=== PATIENT | male | born 1950 | race Caucasian/White ===

== ENCOUNTER 2022-04-10 11:16 | Day surgery (SDC) | payer BC, MEDICARE ==
[~2022-04-10 11:16] MED LIST: LACTATED RINGERS 1,000 ML IV SCH; LIDOCAINE 1% (10MG/ML) FOR IV START INTRADERMA PRN
[2022-04-10 12:25] VITALS: TEMP 97.3
[2022-04-10] MEDS ORDERED: PROPOFOL 10 MG/ML 20 ML VIAL IV ONE (13:52)
--- NOTE | 2022-04-10 14:07 | P.PCN ---
Date of Procedure: 04/10/22 Procedure(s) Performed: BRIEF HISTORY: Patient is a in 21-year-old pleasant White male scheduled for an elective colonoscopy as a part of evaluation of screening for colon cancer/positive cologuard PROCEDURE PERFORMED: Colonoscopy. PREOPERATIVE DIAGNOSIS: Screening for colon cancer/positive cologuard:. IV sedation per Anesthesia. PROCEDURE: After informed consent was obtained, the patient, was brought into the endoscopy unit. IV sedation was administered by Anesthesia under continuous monitoring. Digital rectal examination was normal. Initially the Olympus CF-160 flexible video colonoscope was then inserted in the rectum, gradually advanced into the cecum without any difficulty. Careful examination was performed as the scope was gradually being withdrawn. Ileocecal valve and the appendiceal orifice were visualized and appeared normal. Prep was excellent. Mucosa of the cecum, ascending colon, transverse colon, descending colon, sigmoid colon, and rectum appeared normal. Retroflexion was performed in the rectum and small internal were seen. The patient tolerated the procedure well. IMPRESSION: Normal-appearing colon from rectum to cecum no evidence of colorectal neoplasia Small internal hemorrhoids. RECOMMENDATIONS: Findings of this examination were discussed with the patient as well as his family. He was advised to have a repeat screening colonoscopy in 10 years..
[2022-04-10 14:14] VITALS: RESP 16
[2022-04-10 14:33] VITALS: BP 135/82; PULSE 66
== END 2022-04-10 14:50 | disposition home or self-care (01) ==
LOC: ORWHC2ENDO 11:16
PROVIDERS: ATTEND Internal Medicine Gastroenterology
DX: Z12.11 Encounter for screening for malignant neoplasm of colon (principal); K64.8 Other hemorrhoids; Z86.718 Personal history of other venous thrombosis and embolism; Z79.01 Long term (current) use of anticoagulants; Z79.899 Other long term (current) drug therapy
CPT/HCPCS: G0121; J2704; 45378

== ENCOUNTER → 2023-12-12 | Outpatient (CLI) | payer MEDICARE ==
--- NOTE | 2023-12-12 10:30 | US ---
EXAMINATION TYPE: US venous doppler duplex LE LT DATE OF EXAM: 12/12/2023 10:21 AM COMPARISON: 02/04/2015 CLINICAL INDICATION: Male, 73 years old with history of M79.662 PAIN IN LEFT LOWER LEG R22.42 LOCALIZ ED SW; edema left leg for 4 days. Patient on blood thinner, history of DVT SIDE PERFORMED: left TECHNIQUE: The lower extremity deep venous system is examined utilizing real time linear array sonog fidelia with graded compression, doppler sonography and color-flow sonography. VESSELS IMAGED: Common Femoral Vein Deep Femoral Vein Greater Saphenous Vein * Femoral Vein Popliteal Vein Small Saphenous Vein * Proximal Calf Veins (* superficial vessels) Left Leg: positive for DVT left popliteal vein distal. There are filling defects noted within the lower popliteal vein. This vessel is partially compressibl e and relatively smaller in caliber. While no color is identified within this vessel, spectral analys is shows some flow. Some surrounding collateral vessels are also noted. Findings suggest more chronic DVT. IMPRESSION: Findings as above which suggest more chronic DVT involving the lower popliteal vein. No a cute, occlusive DVT identified imaged from the groin to the upper calf.
== END | disposition home or self-care (01) ==
LOC: RADUSWWP 09:57
PROVIDERS: ATTEND Family Medicine
DX: I82.402 Acute embolism and thrombosis of unspecified deep veins of left lower extremity (principal); R22.42 Localized swelling, mass and lump, left lower limb

== ENCOUNTER 2023-12-22 07:46 | Day surgery (SDC) | payer MEDICARE ==
[2023-12-19 12:25] VITALS: BMI 29.8
[2023-12-22] MEDS ORDERED: LIDOCAINE 1% (10MG/ML) FOR IV START INTRADERMA PRN (07:57)
[2023-12-22] MEDS ORDERED: droPERidol 5 MG/2 ML VIAL IVP ONE (07:57)
[2023-12-22] MEDS ORDERED: HYDROmorphone 0.5 MG/0.5 ML SYRINGE IVP PRN (07:57)
[2023-12-22] MEDS: IV FLUID CONTINUATION 1,000 ML IV ONE ×2 (08:25→11:22)
[2023-12-22] MEDS: ONDANSETRON 4 MG/2 ML VIAL IVP ONE (08:30)
[2023-12-22] MEDS: DEXAMETHASONE SOD PHOSPHATE 4 MG/ML 1 ML VIAL IV ONE (08:30)
[2023-12-22] MEDS: LACTATED RINGERS 1,000 ML IV SCH (08:30)
[2023-12-22] MEDS: ACETAMINOPHEN TAB 500 MG TAB PO PRN (08:31)
[2023-12-22 08:45] LABS: Basophils # (A) 0.1 k/uL (0-0.2); Basophils % (A) 1 %; Eosinophils # (A) 0.3 k/uL (0-0.7); Eosinophils % (A) 5 %; HCT 44.1 % (39.0-53.0); Lymphocytes # (A) 1.8 k/uL (1.0-4.8); Lymphocytes % (A) 31 %; MCH 32.5 pg (25.0-35.0); MCHC 31.8 g/dL (31.0-37.0); MCV 102.1 fL (80.0-100.0); Macrocytosis Slight; Mean Platelet Volume 8.1; Monocytes # (A) 0.5 k/uL (0-1.0); Monocytes % (A) 8 %; Neutrophils # (A) 3.1 k/uL (1.3-7.7); Neutrophils % (A) 52 %; Platelet Count 250 k/uL (150-450); RBC 4.32 m/uL (4.30-5.90)
[2023-12-22 08:49] LABS: ALT 30 U/L (4-49); AST 37 U/L (17-59); African American GFR (CKD) >90 (>60 ml/min/1.73 sqM); Alkaline Phosphatase 67 U/L (38-126); Anion Gap 8 mmol/L; Blood Urea Nitrogen 29 mg/dL (9-20); Calcium 9.1 mg/dL (8.4-10.2); Carbon Dioxide 19 mmol/L (22-30); Chloride 114 mmol/L (98-107); Glucose 102 mg/dL (74-99); Non-African American GFR(CKD) 88 (>60 ml/min/1.73 sqM); Potassium 4.5 mmol/L (3.5-5.1); Sodium 141 mmol/L (137-145); Total Bilirubin 0.9 mg/dL (0.2-1.3); Total Protein 7.4 g/dL (6.3-8.2)
[2023-12-22] MEDS: HEPARIN SODIUM,PORCINE 5,000 UNIT/ML 1 ML VIAL SQ PRN (09:16)
[2023-12-22] MEDS ORDERED: ROCURONIUM 10 MG/ML (5 ML VIAL) IV ONE (09:54)
[2023-12-22] MEDS ORDERED: fentaNYL (PF) 50 MCG/ML 2 ML AMP ONE (09:54)
[2023-12-22] MEDS ORDERED: MIDAZOLAM 2 MG/2 ML VIAL ONE (09:54)
[2023-12-22] MEDS ORDERED: PHENYLEPHRINE 10 MG/ML VIAL ONE (09:54)
[2023-12-22] MEDS ORDERED: HYDROmorphone (PF) 1 MG/ML ONE (09:54)
[2023-12-22] MEDS ORDERED: NEOSTIGMINE 1 MG/ML 10 ML VIAL ONE (09:54)
[2023-12-22] MEDS ORDERED: KETOROLAC 15 MG/ML 1 ML VIAL ONE (09:54)
[2023-12-22] MEDS ORDERED: GLYCOPYRROLATE 0.2 MG/ML 2 ML VIAL ONE (09:54)
[2023-12-22] MEDS ORDERED: LIDOCAINE 1% INJ 10MG/ML (20 ML MDV) ONE (09:54)
[2023-12-22] MEDS ORDERED: SUCCINYLCHOLINE CHLORIDE 200 MG/10 ML VIAL IV ONE (09:54)
[2023-12-22] MEDS ORDERED: PROPOFOL 10 MG/ML 20 ML VIAL IV ONE (09:54)
[2023-12-22] MEDS: LIDOCAINE 1%-EPI 1:100,000 20 ML VIAL SQ ONE (10:15)
--- NOTE | 2023-12-22 10:42 | P.OP ---
Date of Procedure: 12/22/23 Preoperative Diagnosis: Cholecystitis Postoperative Diagnosis: Cholecystitis Procedure(s) Performed: Laparoscopic cholecystectomy Anesthesia: JULIA Surgeon: Cedric Deleon Estimated Blood Loss (ml): 5 Pathology: other (Gallbladder) Condition: stable Disposition: PACU Description of Procedure: The patient was placed on the operating table. The patient received a general endotracheal tube anesthesia. The patients abdomen was prepped and draped in the usual sterile fashion. Through an infraumbilical stab incision, the fascia of the anterior abdominal wall was grasped with a pair of Kochers and then the Veress needle was placed in the peritoneal cavity. Position of the Veress needle was confirmed with positive drop test. The abdomen was then insufflated. After adequate insufflation, the 10 mm trocar was placed in the peritoneal cavity. Following this the laparoscope was placed in the peritoneal cavity. The patient was placed in the head-up, right side up position and then a 5 mm trocar was placed in the right lateral and right subcostal position under direct visualization. A 8 mm trocar was placed in the epigastric position. The gallbladder was grasped in the fundus and infundibulum. Traction on the gallbladder was placed in the lateral and the cephalad positions. The triangle of Calot was visualized.. The cystic duct was bluntly dissected until the union of the cystic duct and common bile duct was seen. A critical view of safety was achieved. The cystic duct was then divided and sealed with the Harmonic scissors. A PDS Endoloop was then placed throughout the cystic duct stump. The cystic artery divided and sealed with the Harmonic scissors. The gallbladder was then removed from the liver bed using Harmonic scissors. The gallbladder was then extracted through the epigastric port site. Operative field was checked for any bleeding spots and Harmonic scissors was used to coagulate the liver bed. The abdomen was irrigated. The trocars were removed. The skin was closed using interrupted 3-0 Vicryl suture. Dermabond dressing were applied. The patient tolerated the procedure well.
[2023-12-22 11:01] VITALS: TEMP 97.2
[2023-12-22 13:38] VITALS: BP 128/72; PULSE 68; RESP 16
[2023-12-22] MEDS: LACTATED RINGERS 1,000 ML IV ONE (13:39)
== END 2023-12-22 14:48 | disposition home or self-care (01) ==
LOC: OR 07:46
PROVIDERS: ATTEND Surgery
DX: C23 Malignant neoplasm of gallbladder (principal); K81.1 Chronic cholecystitis; I10 Essential (primary) hypertension; E78.5 Hyperlipidemia, unspecified; E07.9 Disorder of thyroid, unspecified; G40.909 Epilepsy, unspecified, not intractable, without status epilepticus; F10.90 Alcohol use, unspecified, uncomplicated; Z86.718 Personal history of other venous thrombosis and embolism; Z79.01 Long term (current) use of anticoagulants; Z79.899 Other long term (current) drug therapy
CPT/HCPCS: 47562; 88304; 80053; 85025; J2250; J0330; J1644; J1100; J2710; J0690; J2405; J2001; J3010; J1170; J1885; J2704; J2371; J1596

== ENCOUNTER → 2024-07-08 | Outpatient (CLI) | payer MEDICARE ==
[2024-07-08 14:06] LABS: African American GFR (CKD) 85 (>60 ml/min/1.73 sqM); Blood Urea Nitrogen 19 mg/dL (9-20); Non-African American GFR(CKD) 74 (>60 ml/min/1.73 sqM)
--- NOTE | 2024-07-08 15:27 | CT ---
EXAMINATION TYPE: CT ChestAbdPelvis w con DATE OF EXAM: 07/08/2024 COMPARISON: None HISTORY: gallbladder ca CT DLP: 907 mGycm Automated exposure control for dose reduction was used. CONTRAST: CT scan of the chest, abdomen and pelvis is performed with Oral Contrast and with IV Contrast, patien t injected with 100ml mL of Isovue 300. FINDINGS: CT chest: There is no suspicious lung mass or nodule. There is no abnormal airspace/consolidative density or abnormal interstitial density. There is no pleural effusion, pleural thickening or pneumothorax. The great vessels and chest are normal there is no mediastinal, hilar or axillary adenopathy. No focal osseous lesions are seen. CT abdomen and pelvis: There is surgical absence of the gallbladder.. There is no biliary ductal dilatation. There is no focal mass or organomegaly involving the liver, pancreas, spleen or adrenal glands.. There is surgical absence of the right kidney. There is no left renal mass or hydronephrosis. . There is no retroperitoneal adenopathy or hemorrhage in the caliber of the abdominal aorta is aaron l. The bowel loops are normal in caliber and there is no dilatation or obstruction. No inflammatory restrepo ges identified in the bowel wall and mesentery. There is no free intracranial air or fluid. There is no pelvic mass or adenopathy. There is no free fluid within the pelvis. No focal osseous lesions are seen. There is a 4.4 centimeter fat-containing periumbilical hernia IMPRESSION: 1. No evidence of recurrent or metastatic disease within the chest, abdomen or pelvis. 2. Surgical absence of the gallbladder and right kidney. 3. 4.4 cm fat-containing periumbilical hernia. [facility], , 07/08/2024 3:24 PM
== END | disposition home or self-care (01) ==
LOC: RADCTMAIN 13:02
PROVIDERS: ATTEND Internal Medicine Hematology & Oncology
DX: E78.5 Hyperlipidemia, unspecified (principal); C23 Malignant neoplasm of gallbladder; D41.10 Neoplasm of uncertain behavior of unspecified renal pelvis; R19.7 Diarrhea, unspecified; K42.9 Umbilical hernia without obstruction or gangrene; Z90.49 Acquired absence of other specified parts of digestive tract
CPT/HCPCS: 82565; 84520; 71260; 74177; 36415; Q9967

== ENCOUNTER → 2024-09-21 | Outpatient (CLI) | payer MEDICARE ==
[2024-09-21 15:00] LABS: Basophils # (A) 0.18 X 10*3/uL (0.00-0.10); Basophils % (A) 1.9 %; Eosinophils # (A) 0.67 X 10*3/uL (0.04-0.35); HCT 40.3 % (39.6-50.0); MCH 33.8 pg (27.0-32.0); MCHC 32.3 g/dL (32.0-37.0); MCV 104.7 FL (80.0-97.0); Mean Platelet Volume 10.8 FL (9.5-12.2); Monocytes # (A) 1.04 X 10*3/uL (0.20-1.00); Monocytes % (A) 10.9 %; NRBC Per 100 WBC 0 X 10*3/uL (0.00-0.01); Neutrophils # (A) 5.63 X 10*3/uL (1.80-7.70); Platelet Count 303 X 10*3/uL (140-440); RBC 3.85 X 10*6/uL (4.40-5.60); RDW 13.5 % (11.5-14.5); WBC 9.54 X 10*3/uL (4.50-10.00)
== END | disposition home or self-care (01) ==
LOC: LABWHC1 08:48
PROVIDERS: ATTEND Surgery
DX: Z01.818 Encounter for other preprocedural examination (principal); I10 Essential (primary) hypertension
CPT/HCPCS: 36415; 85025; 86850; 86900; 86901; 93005

== ENCOUNTER 2024-09-28 05:55 | Day surgery (SDC) | payer MEDICARE ==
[~2024-09-28 05:55] MED LIST changes: -LACTATED RINGERS 1,000 ML IV SCH
[2024-09-28] MEDS: IV FLUID CONTINUATION 1,000 ML IV ONE (06:46)
[2024-09-28] MEDS ORDERED: fentaNYL (PF) 50 MCG/ML 2 ML AMP IV PRN (07:00)
[2024-09-28] MEDS ORDERED: HYDROmorphone 0.5 MG/0.5 ML SYRINGE IVP PRN (07:00)
[2024-09-28] MEDS: LACTATED RINGERS 1,000 ML IV SCH (07:07)
[2024-09-28] MEDS: ACETAMINOPHEN TAB 500 MG TAB PO PRN (07:07)
[2024-09-28] MEDS: ONDANSETRON 4 MG/2 ML VIAL IVP ONE (07:08)
[2024-09-28] MEDS: DEXAMETHASONE SOD PHOSPHATE 4 MG/ML 1 ML VIAL IV ONE (07:08)
[2024-09-28] MEDS: MIDAZOLAM 2 MG/2 ML VIAL IV ONE (07:12)
[2024-09-28] MEDS: HEPARIN SODIUM,PORCINE 5,000 UNIT/ML 1 ML VIAL SQ PRN (07:27)
--- NOTE | 2024-09-28 07:29 | P.ANPRN ---
Procedure Note - Anesthesia - Nerve Block Performed Bilateral Erector Spinae Single Time Out Performed: Yes Date of Procedure: 09/28/24 Procedure Start Time: 07:11 Procedure Stop Time: 07:16 Location of Patient: PreOp Indication: Acute Post-Operative Pain, Analgesia, Requested by Surgeon Sedation Type: Sedate with meaningful contact maintained Preparation: Sterile Prep Position: Prone Catheter: None Needle Types: Pajunk Needle Gauge: 21 Ultrasound used to visualize needle placement: Yes Ultrasound used to observe medication spread: Yes Injectate: 0.5% Ropivacaine (see comment for volume) ([id number], Needle level T10--- Each side.) Blood Aspirated: No Pain Paresthesia on Injection Noted: No Resistance on Injection: Normal Image Stored and Saved: Yes Events: Uneventful and Well Tolerated
[2024-09-28] MEDS ORDERED: ePHEDrine 50 MG/ML 1 ML VIAL ONE (07:30)
[2024-09-28] MEDS ORDERED: PROPOFOL 10 MG/ML 20 ML VIAL IV ONE (07:30)
[2024-09-28] MEDS ORDERED: GLYCOPYRROLATE 0.2 MG/ML 2 ML VIAL ONE (07:30)
[2024-09-28] MEDS ORDERED: DEXAMETHASONE SOD PHOSPHATE 4 MG/ML 1 ML VIAL ONE (07:30)
[2024-09-28] MEDS ORDERED: SUCCINYLCHOLINE CHLORIDE 200 MG/10 ML VIAL IV ONE (07:30)
[2024-09-28] MEDS ORDERED: ROPIVACAINE 5 MG/ML 30 ML VIAL ONE (07:30)
[2024-09-28] MEDS ORDERED: WATER FOR INJECTION, STERILE 10 ML VIAL IV ONE (07:30)
[2024-09-28] MEDS ORDERED: NEOSTIGMINE 1 MG/ML 10 ML VIAL ONE (07:30)
[2024-09-28] MEDS ORDERED: ROCURONIUM 10 MG/ML (5 ML VIAL) IV ONE (07:30)
[2024-09-28] MEDS ORDERED: fentaNYL (PF) 50 MCG/ML 2 ML AMP ONE (07:30)
[2024-09-28] MEDS ORDERED: SODIUM CHLORIDE 0.9% (PF) 10 ML VIAL ONE (07:30)
[2024-09-28] MEDS ORDERED: LIDOCAINE 1% INJ 10MG/ML (20 ML MDV) ONE (07:30)
[2024-09-28] MEDS ORDERED: KETOROLAC 15 MG/ML 1 ML VIAL ONE (07:30)
[2024-09-28] MEDS ORDERED: KETAMINE HCL IN 0.9 % NACL 50 MG/5 ML SYRINGE ONE (07:30)
[2024-09-28] MEDS: ceFAZolin 2 GM in DEXTROSE 5% IN WATER 50 ML IVPB PRN (07:33)
--- NOTE | 2024-09-28 07:35 | P.GSHP ---
History of Present Illness H&P Date: 09/28/24 Chief Complaint: Umbilical hernia This is a 74-year-old male whose developed an umbilical hernia. Patient presents today for laparoscopic robotic assisted repair. 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 possibly - Saw Dr. Martin ekg, echo 24 hr. monitor, carotids all WNL - Pt. to have sleep study in future d/t bradycardia at night per holter monitor History of Any Multi-Drug Resistant Organisms: None Reported Past Surgical History: Cholecystectomy Additional Past Surgical History / Comment(s): VEIN STRIPPING TO RIGHT LEG R/T- DVT 15 yrs ago, liver/lymph node biopsy following cholecytectomy - neg Past Anesthesia/Blood Transfusion Reactions: No Reported Reaction Additional Past Anesthesia/Blood Transfusion Reaction / Comment(s): no hx blood transfusion Smoking Status: Never smoker - Past Family History Mother Additional Family Medical History / Comment(s): blood clots-unsure location Medications and Allergies Home Medications Medication Instructions Recorded Confirmed Type Aspirin EC [Ecotrin Low Dose] 81 mg PO DAILY 04/10/22 09/28/24 History Ergocalciferol [Vitamin D2 (1250 1 cap PO WEEKLY 04/10/22 09/28/24 History Mcg = 91356 Iu)] Ascorbic Acid [Vitamin C] 1,000 mg PO DAILY 12/19/23 09/28/24 History Atorvastatin Calcium 10 mg PO DAILY 12/19/23 09/28/24 History Fish Oil/Dha/Epa [Fish Oil 1,200 1 each PO DAILY 12/19/23 09/28/24 History mg Fish Oil] Losartan Potassium [Cozaar] 100 mg PO QAM 12/19/23 09/28/24 History Magnesium 200 mg PO Q7D 12/19/23 09/28/24 History Multivitamins, Thera [Multivitamin 1 tab PO DAILY 12/19/23 09/28/24 History (formulary)] Rivaroxaban [Xarelto] 20 mg PO DAILY 12/19/23 09/28/24 History Acetaminophen Tab [Tylenol] 650 mg PO Q6H #30 tab 12/22/23 09/28/24 Rx L.acidoph,Paracasei, B.lactis 1 tab PO DAILY 09/23/24 09/28/24 History [Probiotic] Allergies Allergy/AdvReac Type Severity Reaction Status Date / Time No Known Allergies Allergy Verified 09/23/24 14:42 Surgical - Exam Vital Signs Temp Pulse Resp BP Pulse Ox 96.5 F L 64 16 128/74 95 09/28/24 06:45 09/28/24 06:45 09/28/24 06:45 09/28/24 06:45 09/28/24 06:45 - General well developed, well nourished, no distress - Eyes PERRL - ENT normal pinna - Neck no masses - Respiratory normal expansion - Cardiovascular Rhythm: regular - Abdomen Abdomen: soft, non tender Hernia: umbilical Assessment and Plan Assessment: Umbilical hernia. Will perform laparoscopic robotic assisted repair.
[2024-09-28] MEDS: LIDOCAINE 1%-EPI 1:100,000 20 ML VIAL SQ ONE (08:00)
[2024-09-28] MEDS: LACTATED RINGERS 1,000 ML IV ONE (08:27)
--- NOTE | 2024-09-28 08:45 | P.OP ---
Date of Procedure: 09/28/24 Preoperative Diagnosis: Incarcerated local hernia Postoperative Diagnosis: Incarcerated local hernia Right inguinal hernia Procedure(s) Performed: Laparoscopic robotic repair of incarcerated local hernia Transversus abdominis plane block Anesthesia: JULIA Surgeon: Cedric Deleon Estimated Blood Loss (ml): 5 Pathology: none sent Condition: stable Disposition: PACU Operative Findings: 5 cm incarcerated local hernia with incarcerated omentum Description of Procedure: The patient was placed on the operating table in the supine position. He received general anesthesia. His abdomen was prepped and draped usual fashion. Using a 5 mm optical trocar under direct visualization the peritoneal cavity was entered in the left upper quadrant. The abdomen was then insufflated. The laparoscope was placed back into the perineal cavity. Next a 8 mm robotic trocar was placed in the left lower quadrant and a 12 mm robotic trocar was placed in the left lateral position. The original 5 mm trocar was exchanged for a 8 mm robotic trocar. The patient's placed in the left side up position. And the patient was un docked to the robot A four-quadrant transversus abdominis plane block was performed with 1% local Xylocaine. The umbilical hernia was visualized. Using hook cautery the peritoneum over the umbilical hernia was excised. The incarcerated omentum was dissected free. The fascial opening was repaired using 0V LOC suture. Next a piece of 11 cm round ventral light ST mesh was placed into the. Cavity and secured with 2 OV lock suture. The patient was undocked the robot. The needles were retrieved. The fascia of the 12 mm trocar site was closed with 0 Ethibond suture. Skin was closed interrupted 3-0 Monocryl suture. Dermabond dressings was applied. Patient top procedure well and was sent to recovery room stable condition.
[2024-09-28 08:49] VITALS: TEMP 97
[2024-09-28 10:35] VITALS: PULSE 53
[2024-09-28 11:07] VITALS: BP 123/72; RESP 18
== END 2024-09-28 11:35 | disposition home or self-care (01) ==
LOC: OR 05:55
PROVIDERS: ATTEND Surgery
DX: K42.0 Umbilical hernia with obstruction, without gangrene (principal); K40.90 Unilateral inguinal hernia, without obstruction or gangrene, not specified as recurrent; G89.18 Other acute postprocedural pain; I10 Essential (primary) hypertension; E78.5 Hyperlipidemia, unspecified; G25.81 Restless legs syndrome; R00.1 Bradycardia, unspecified; Z79.82 Long term (current) use of aspirin; Z79.01 Long term (current) use of anticoagulants; Z79.899 Other long term (current) drug therapy; Z86.718 Personal history of other venous thrombosis and embolism; Z85.09 Personal history of malignant neoplasm of other digestive organs; Z90.49 Acquired absence of other specified parts of digestive tract
CPT/HCPCS: 49594; S2900; 64468

== ENCOUNTER → 2024-12-09 | Outpatient (CLI) | payer MEDICARE ==
[2024-12-09 15:27] VITALS: BP 130/82; PULSE 60; RESP 16; TEMP 97.5
--- NOTE | 2024-12-09 15:49 | P.SLEEP ---
History of Present Illness DATE: 12/09/2024 CONSULTATION/NEW PATIENT EVALUATION HISTORY OF PRESENT ILLNESS/SLEEP-WAKE EVALUATION: 74-year-old gentleman had be en evaluated in the sleep center for possible obstructive sleep apnea hypopnea syndrome. SLEEP SCHEDULE: Usually sleep schedule from 10 PM to 6 AM. FALLING ASLEEP: No problems with falling asleep. DURING SLEEP: Patient snores, wakes up from sleep more than 4 times with nocturia, has low pulse rate during sleep by results of classroom monitor. No history of hypnogogical hallucinations, sleep paralysis, or cataplexy. DURING THE DAY/WAKE STATE: Patient may have episodes of sleepiness during the day. Tolar sleepiness scale is 9. Patient takes 1 nap afternoon. PAST MEDICAL HISTORY: Hypertension, DVT, hyperlipidemia, gallbladder cancer, lightheadedness episodes. PAST SURGICAL HISTORY: Cholecystectomy for bladder cancer. MEDICATIONS: Please see below. SOCIAL HISTORY: Please see below. FAMILY HISTORY: Please see below. REVIEW OF SYSTEMS: Snoring, multiple awakenings from sleep, episodes of low pulse. No fevers. No double vision. No recent chest pain. No shortness of breath. No abdominal pain. No bleeding episodes. No blood in urine. No seizure episodes. PHYSICAL EXAMINATION: GENERAL: A pleasant patient without any distress. VITAL SIGNS: Please see below, weight 210 pounds, BMI 30.1. HEENT: PERRLA, EOMI. Evaluation of oropharynx showed tongue protrudes midline, low position of soft palate Mallampati 23, short distance between soft palate and posterior pharyngeal wall. NECK: Supple. No JVD. Thyroid is not palpable. 16 inches in circumference. LUNGS: Clear to percussion and to auscultation. Good air exchange. No wheezing or rhonchi. HEART: S1, S2 regular. No murmurs, gallops or rubs. ABDOMEN: Soft and nontender. Bowel sounds are present. No organomegaly appreciated. EXTREMITIES: No clubbing or cyanosis. ANIMAL CARE WORKER: Awake, alert, and oriented x3. Cranial nerves 2 to 7 intact. There is no fasciculation or atrophy noted. No focal deficits observed. ASSESSMENT: 1. Snoring, multiple awakenings from sleep more than 4 times, short distance between soft palate and posterior pharyngeal wall, bradycardia during sleep. Obstructive sleep apnea hypopnea syndrome. 2. Bradycardia during sleep. 3. Episodes of lightheadedness. 4. History of gallbladder cancer, status post cholecystectomy. 5 hypertension. 6 . Hyperlipidemia. 7. History of DVT. 8. Very minimal obesity, BMI 30.1 PLAN: 1. Polysomnography for evaluation of patient's breathing during sleep. 2. Following plan after reading sleep study. 3. Preferable position during sleep on the side. 4. No driving if patient feels any sleepiness. Patient is aware of civil and criminal liability for unsafe driving. 5. Sleep hygiene with regular sleep time for at least 7.5-8 hours. 6. Watching weight. Thank you very much for referring this patient for consultation. Sincerely, Curt Churchill MD, PhD, FAASM. Diplomat of [employer], Sleep Medicine Board by [place] [employer] [facility] [place] cc: Lakshmi Martin DO Past Medical History Past Medical History: Cancer, Hyperlipidemia, Hypertension Additional Past Medical History / Comment(s): DVT left leg Dx 12-12-23, DVT-rt leg 15 yrs ago. Rt inguinal hernia. chemo post gallbladder removal for cancer. last 08/2024 History of Any Multi-Drug Resistant Organisms: None Reported Past Surgical History: Cholecystectomy Additional Past Surgical History / Comment(s): VEIN STRIPPING TO RIGHT LEG R/T- DVT 15 yrs ago, umbilical hernia repair. liver bx and lymph nodes removed. - negative. Past Anesthesia/Blood Transfusion Reactions: No Reported Reaction Additional Past Anesthesia/Blood Transfusion Reaction / Comment(s): no hx blood transfusion Past Psychological History: No Psychological Hx Reported Smoking Status: Never smoker Past Alcohol Use History: Occasional Past Drug Use History: None Reported - Past Family History Mother Additional Family Medical History / Comment(s): blood clots-unsure location Medications and Allergies Home Medications Medication Instructions Recorded Confirmed Type Aspirin EC [Ecotrin Low Dose] 81 mg PO DAILY 04/10/22 11/05/24 History Ergocalciferol [Vitamin D2 (1250 1 cap PO WEEKLY 04/10/22 11/05/24 History Mcg = 46961 Iu)] Ascorbic Acid [Vitamin C] 1,000 mg PO DAILY 12/19/23 11/05/24 History Atorvastatin Calcium 10 mg PO DAILY 12/19/23 11/05/24 History Fish Oil/Dha/Epa [Fish Oil 1,200 1 each PO DAILY 12/19/23 11/05/24 History mg Fish Oil] Losartan Potassium [Cozaar] 100 mg PO QAM 12/19/23 11/05/24 History Magnesium 200 mg PO Q7D 12/19/23 11/05/24 History Multivitamins, Thera [Multivitamin 1 tab PO DAILY 12/19/23 11/05/24 History (formulary)] Rivaroxaban [Xarelto] 20 mg PO DAILY 12/19/23 11/05/24 History Acetaminophen Tab [Tylenol] 650 mg PO Q6H #30 tab 12/22/23 11/05/24 Rx L.acidoph,Paracasei, B.lactis 1 tab PO DAILY 09/23/24 11/05/24 History [Probiotic] Acetaminophen Tab [Tylenol] 650 mg PO Q6H #30 tab 11/09/24 Rx Docusate [Colace] 100 mg PO BID #20 capsule 11/09/24 Rx Ibuprofen [Motrin] 600 mg PO Q6HR PRN #40 tab 11/09/24 Rx oxyCODONE HCL [OxyIR] 5 mg PO Q6H PRN 3 Days #10 tab 11/09/24 Rx Allergies Allergy/AdvReac Type Severity Reaction Status Date / Time No Known Allergies Allergy Verified 11/05/24 10:43 Physical Exam Vitals: Vital Signs Temp Pulse Resp BP Pulse Ox 12/09/24 15:26 97.5 F L 60 16 130/82 99 Intake and Output 12/09/24 12/09/24 12/09/24 06:59 14:59 22:59 Other: Weight 95.254 kg Sleep Note - Sleep Data ESS Total: 9 - Sleep Note Sleep Note: Temperature: 97.5 F Pulse Rate: 60 Respiratory Rate: 16 Blood Pressure: 130/82 SpO2: 99 Height: 5 ft 10 in Weight: 95.254 kg BMI: Neck Circumference:
== END ==
LOC: 3 N SLEEP 15:16
PROVIDERS: ATTEND Internal Medicine
DX: G47.33 Obstructive sleep apnea (adult) (pediatric) (principal); R00.1 Bradycardia, unspecified; R42 Dizziness and giddiness; I10 Essential (primary) hypertension; E66.9 Obesity, unspecified; Z98.890 Other specified postprocedural states; Z68.30 Body mass index [BMI] 30.0-30.9, adult; Z90.49 Acquired absence of other specified parts of digestive tract; Z86.718 Personal history of other venous thrombosis and embolism
CPT/HCPCS: 99211

== ENCOUNTER → 2024-12-20 | Outpatient (CLI) | payer MEDICARE ==
[2024-12-20 12:55] LABS: African American GFR (CKD) 85 (>60 ml/min/1.73 sqM); Blood Urea Nitrogen 26 mg/dL (9-20); Non-African American GFR(CKD) 73 (>60 ml/min/1.73 sqM)
--- NOTE | 2024-12-20 14:50 | CT ---
EXAMINATION TYPE: CT ChestAbdPelvis w con CT DLP: 1430 mGycm, Automated exposure control for dose reduction was used. DATE OF EXAM: 12/20/2024 2:24 PM COMPARISON: CT chest abdomen and pelvis 07/08/2024 CLINICAL INDICATION:Male, 74 years old with history of C23 MALIGNANT NEOPLASM OF GALLBLADDER; PHH, f/ u kidney and gallbladder ca Technique: Multiple axial images of the chest, abdomen, and pelvis were obtained following the intrav enous administration of 100 mL Isovue-300. Oral contrast was administered. Two-dimensional coronal an d sagittal reconstructions were obtained. Findings: CHEST: LUNGS/ PLEURA: Incidental azygous fissure. No pleural effusion, pneumothorax, focal consolidation. Mi ld right basilar linear atelectasis or scarring. No suspicious pulmonary nodule or mass. AIRWAY: Patent and unremarkable.. HEART: Size within normal limits. . No pericardial effusion. Mild coronary artery calcifications pres ent. MEDIASTINUM: No evidence of adenopathy. VASCULATURE: No aortic aneurysm. Four-vessel aortic arch. Mild atherosclerotic calcification of the aortic arch. MUSCULOSKELETAL: No acute osseous abnormalities. No aggressive osseous lesion. Multilevel anterior os teophytosis of the mid to lower thoracic spine. SOFT TISSUES/LYMPH NODES: Unremarkable. LOWER NECK: No significant findings. ABDOMEN: ABDOMEN LIVER: Unremarkable GALLBLADDER AND BILE DUCTS: The gallbladder is surgically absent. No biliary ductal dilatation. No leone spicious soft tissue within the surgical bed. PANCREAS: Unremarkable. SPLEEN: Unremarkable. ADRENAL GLANDS: Unremarkable. KIDNEYS AND URETERS: Postsurgical changes from right nephrectomy. There is a decreased size well-circ umscribed lesion within the right nephrectomy bed measuring up to 2.2 cm, previously measured 3.6 cm at this site series 3, image 71). No left-sided hydronephrosis or renal calculi. Contrast is demonstr ated within the left renal collecting system and proximal ureter on the delayed phase. No suspicious left renal lesion. PELVIS BLADDER: Unremarkable REPRODUCTIVE: Unremarkable. ABDOMEN & PELVIS STOMACH AND BOWEL: Stomach and duodenum are unremarkable. Enteric contrast reaches the transverse col on. No focal wall thickening or inflammatory changes. Long segment submucosal fat deposition of the d istal colon into the rectum. Can be seen with chronic inflammatory process such as ulcerative colitis . No evidence of bowel obstruction. PERITONEUM: No evidence of pneumoperitoneum or free fluid. VASCULATURE: No evidence of aortic aneurysm. MUSCULOSKELETAL: No acute osseous abnormalities. No aggressive osseous lesion. Prominent Schmorl's no de involving the superior endplate of the L1 vertebral body. Multilevel degenerative disc disease. Mo st prominent at L5-S1. LYMPH NODES: No evidence for lymphadenopathy. SOFT TISSUE/ABDOMINAL WALL: Unremarkable IMPRESSION: Postsurgical changes from cholecystectomy and right nephrectomy. There is a well-circumscribed decrea sed size 2.2 cm lesion within the right nephrectomy bed. May represent resolving seroma/hematoma with residual malignancy not excluded. Recommend short-term follow-up CT in 3 months. No other suspicious lesions or adenopathy identified. [facility], , 12/20/2024 2:48 PM
== END | disposition home or self-care (01) ==
LOC: RADCTMAIN 12:19
PROVIDERS: ATTEND Internal Medicine Hematology & Oncology
DX: C23 Malignant neoplasm of gallbladder (principal); E78.5 Hyperlipidemia, unspecified; R19.7 Diarrhea, unspecified; D41.10 Neoplasm of uncertain behavior of unspecified renal pelvis; Z71.3 Dietary counseling and surveillance; Z90.5 Acquired absence of kidney; Z90.49 Acquired absence of other specified parts of digestive tract
CPT/HCPCS: 82565; 84520; 71260; 74177; 36415; Q9967